=== PATIENT | female | born 1950 | race Caucasian/White ===

== ENCOUNTER 2017-03-14 15:06 | Emergency (ER) | payer MEDICARE, MEDICAID ==
[~2017-03-14] VITALS: Ht 167.6 cm; Wt 56.0 kg
[2017-03-14 18:07] LABS: BASOPHILS % 0.4 % (0.0-2.0); EOSINOPHILS % 0.8 % (0.0-5.0); HEMATOCRIT. 29.8 % (36.0-48.0); HEMOGLOBIN. 9.7 g/dL (12.0-16.0); LYMPHOCYTES % 10.9 % (20.0-50.0); MEAN CORPUSCULAR HEMOGLOBIN 27.4 pg (28.0-32.0); MEAN CORPUSCULAR HGB CONC 32.7 g/dL (31.0-37.0); MEAN CORPUSCULAR VOLUME 83.7 fL (81.0-99.0); MEAN PLATELET VOLUME 7.1 fl (7.4-10.4); MONOCYTES % 8.4 % (2.0-8.0); NEUTROPHILS % 79.5 % (40.0-76.0); PLATELET 366 x1000/uL (130-400); RED BLOOD CELL COUNT 3.56 mill/uL (4.2-5.4); RED CELL DISTRIBUTION WIDTH 16.2 % (11.6-14.6); WHITE BLOOD COUNT 11.5 x1000/uL (4.5-11.0)
[2017-03-14 18:11] LABS: CALCIUM 8.9 mg/dL (8.5-10.1)
[2017-03-14 20:53] VITALS: BP 131/52
== END 2017-03-14 21:22 | disposition home or self-care (01) ==
LOC: ER 15:07 → SUPCPDRO 20:09 → ER 21:22
DX: R00.0 Tachycardia, unspecified (principal); I12.0 Hypertensive chronic kidney disease with stage 5 chronic kidney disease or end stage renal disease; N18.6 End stage renal disease; Z99.2 Dependence on renal dialysis
CPT/HCPCS: 36415; 71010; 80048; 85025; 93005; 99285

== ENCOUNTER 2017-07-28 16:24 | Inpatient (IN) | payer MEDICARE, MEDICAID, OTHER ==
[~2017-07-28] VITALS: Ht 182.9 cm; Wt 55.8 kg
[2017-07-28] MEDS ORDERED: CLON0.2T PO (17:12)
[2017-07-28] MEDS ORDERED: CARV6.2548 PO (17:12)
[2017-07-28] MEDS ORDERED: DILT120C11 PO (17:12)
[2017-07-28] MEDS ORDERED: LISI40TA4 PO (17:12)
[2017-07-28] MEDS ORDERED: SEVE800T8 PO (17:12)
[2017-07-28] MEDS ORDERED: MINO2.5T19 GT (17:12)
[2017-07-28 17:49] LABS: BASOPHILS % 0.9 % (0.0-2.0); EOSINOPHILS % 5.2 % (0.0-5.0); HEMATOCRIT. 29.9 % (36.0-48.0); HEMOGLOBIN. 9.9 g/dL (12.0-16.0); LYMPHOCYTES % 16.9 % (20.0-50.0); MEAN CORPUSCULAR HEMOGLOBIN 26.9 pg (28.0-32.0); MEAN CORPUSCULAR VOLUME 81.1 fL (81.0-99.0); MEAN PLATELET VOLUME 7.3 fl (7.4-10.4); MONOCYTES % 9.8 % (2.0-8.0); NEUTROPHILS % 67.2 % (40.0-76.0); PLATELET 188 x1000/uL (130-400); RED BLOOD CELL COUNT 3.69 mill/uL (4.2-5.4)
[2017-07-28 18:05] LABS: PARTIAL THROMBOPLASTIN TIME 59.2 sec (23.4-31.0); PROTHROMBIN TIME 77.2 sec (9.4-11.6)
[2017-07-28 18:17] LABS: INR 7.4
[2017-07-28] MEDS ORDERED: PHYTONADIONE 10MG/ML AMP SUBCUT ONE (19:00)
[2017-07-28] MEDS ORDERED: CLONIDINE 0.2MG TABLET PO ONE (19:00)
[2017-07-28 19:19] LABS: TROPONIN I 0.02 ng/mL (0.00-0.04)
[2017-07-28] MEDS ORDERED: MAGNESIUM/ALUMINUM HYDROXIDE/SIMETHICONE 30ML UDC PO PRN (21:15)
[2017-07-28] MEDS ORDERED: ACETAMINOPHEN 325MG TABLET PO PRN (21:15)
[2017-07-28] MEDS ORDERED: IPRATROPIUM/ALBUTEROL 0.5-3(2.5)MG/3ML NEB INH PRN (21:15)
[2017-07-28] MEDS ORDERED: ONDANSETRON HCL 4MG/2ML VIAL IV PRN (21:15)
[2017-07-28 21:50] VITALS: BP 187/50
[2017-07-28 22:30] VITALS: BP 187/50
[2017-07-28] MEDS: CLONIDINE 0.1MG TABLET PO PRN (23:08)
[2017-07-28 23:48] LABS: PARTIAL THROMBOPLASTIN TIME 58.5 sec (23.4-31.0); PROTHROMBIN TIME 64.6 sec (9.4-11.6)
[2017-07-28 23:57] LABS: INR 6.2
[2017-07-29] VITALS (14 sets, daily range): BP systolic 106–191; BP diastolic 45–60
[2017-07-29] MEDS: HYDRALAZINE 20MG/ML VIAL IV PRN ×2 (01:53→17:46)
[2017-07-29] MEDS ORDERED: HYDRALAZINE 20MG/ML VIAL IV SCH (06:00)
[2017-07-29] MEDS ORDERED: AMLODIPINE 10MG TABLET PO NR (06:05)
[2017-07-29] MEDS: HYDRALAZINE HCL 25MG TABLET PO SCH ×3 (06:14→21:15)
[2017-07-29] MEDS ORDERED: DEXTROSE 50% WATER 50ML SYRINGE IV PRN (06:45)
[2017-07-29] MEDS: BLOOD SUGAR DIAGNOSTIC STRIP TEST SCH ×4 (06:54→20:12)
[2017-07-29] MEDS: INSULIN LISPRO 100 UNITS/ML SUBCUT SCH ×4 (06:54→20:13)
[2017-07-29 07:18] LABS: EOSINOPHILS % 3.9 % (0.0-5.0); HEMATOCRIT. 26.6 % (36.0-48.0); HEMOGLOBIN. 8.8 g/dL (12.0-16.0); LYMPHOCYTES % 14.5 % (20.0-50.0); MEAN CORPUSCULAR HEMOGLOBIN 26.9 pg (28.0-32.0); MEAN CORPUSCULAR VOLUME 81.1 fL (81.0-99.0); MONOCYTES % 9.7 % (2.0-8.0); NEUTROPHILS % 70.9 % (40.0-76.0); PLATELET 166 x1000/uL (130-400); RED BLOOD CELL COUNT 3.28 mill/uL (4.2-5.4)
[2017-07-29] MEDS ORDERED: PHYTONADIONE 10MG/ML AMP SUBCUT SCH (09:00)
[2017-07-29] MEDS ORDERED: WARF7.5T22 PO (10:23)
[2017-07-29] MEDS ORDERED: METO-396 PO (10:23)
[2017-07-29] MEDS ORDERED: WARF5TAB73 PO (10:23)
[2017-07-29] MEDS ORDERED: AMLO2.5T45 PO (10:23)
[2017-07-29] MEDS: AMLODIPINE 2.5MG TABLET PO SCH (10:55)
[2017-07-29] MEDS: LISINOPRIL 40MG TABLET PO SCH (10:56)
[2017-07-29] MEDS: METOPROLOL TARTRATE 25MG TABLET PO SCH (10:56)
[2017-07-29] MEDS: AZITHROMYCIN 500 MG in DEXT 5% WATER 250 ML IV SCH (20:05)
[2017-07-29] MEDS: CEFTRIAXONE 1 G PREMIX 50 ML IV SCH (21:15)
[2017-07-30 00:30] VITALS: BP 168/52
[2017-07-30] MEDS: CLONIDINE 0.1MG TABLET PO PRN (00:42)
[2017-07-30 05:01] VITALS: BP 169/59
[2017-07-30] MEDS: HYDRALAZINE HCL 25MG TABLET PO SCH ×3 (05:16→21:12)
[2017-07-30] MEDS: BLOOD SUGAR DIAGNOSTIC STRIP TEST SCH ×4 (06:15→20:37)
[2017-07-30] MEDS: INSULIN LISPRO 100 UNITS/ML SUBCUT SCH ×4 (06:15→21:04)
[2017-07-30 07:19] LABS: INR 1.2; PARTIAL THROMBOPLASTIN TIME 28.1 sec (23.4-31.0); PROTHROMBIN TIME 12.9 sec (9.4-11.6)
[2017-07-30 07:46] LABS: BASOPHILS % 0.9 % (0.0-2.0); EOSINOPHILS % 1.7 % (0.0-5.0); HEMATOCRIT. 26.6 % (36.0-48.0); HEMOGLOBIN. 8.8 g/dL (12.0-16.0); MEAN CORPUSCULAR HEMOGLOBIN 26.9 pg (28.0-32.0); MEAN CORPUSCULAR VOLUME 81.5 fL (81.0-99.0); MEAN PLATELET VOLUME 7.9 fl (7.4-10.4); MONOCYTES % 10.2 % (2.0-8.0); NEUTROPHILS % 65.2 % (40.0-76.0); PLATELET 193 x1000/uL (130-400); RED BLOOD CELL COUNT 3.27 mill/uL (4.2-5.4); RED CELL DISTRIBUTION WIDTH 18.1 % (11.6-14.6)
[2017-07-30 08:00] VITALS: BP 179/56
[2017-07-30] MEDS: LISINOPRIL 40MG TABLET PO SCH (09:00)
[2017-07-30] MEDS: AMLODIPINE 2.5MG TABLET PO SCH (09:00)
[2017-07-30] MEDS: METOPROLOL TARTRATE 25MG TABLET PO SCH (09:00)
[2017-07-30] MEDS: AMLODIPINE 5MG TABLET PO SCH (11:00)
[2017-07-30 12:00] VITALS: BP 154/59
[2017-07-30] MEDS: HYDRALAZINE 20MG/ML VIAL IV PRN ×3 (15:50→21:04)
[2017-07-30 16:00] VITALS: BP 202/63
[2017-07-30 19:57] VITALS: BP 160/52
[2017-07-30] MEDS: AZITHROMYCIN 500 MG in DEXT 5% WATER 250 ML IV SCH (20:29)
[2017-07-30] MEDS: CEFTRIAXONE 1 G PREMIX 50 ML IV SCH (21:02)
[2017-07-31] VITALS: BP 131/56
[2017-07-31 04:00] VITALS: BP 165/55
[2017-07-31 05:58] LABS: INR 1.2; PARTIAL THROMBOPLASTIN TIME 25.4 sec (23.4-31.0); PROTHROMBIN TIME 12.3 sec (9.4-11.6)
[2017-07-31] MEDS: HYDRALAZINE HCL 25MG TABLET PO SCH ×2 (06:03→14:13)
[2017-07-31 06:23] LABS: BASOPHILS % 0.8 % (0.0-2.0); EOSINOPHILS % 1.1 % (0.0-5.0); HEMATOCRIT. 27.1 % (36.0-48.0); LYMPHOCYTES % 26.2 % (20.0-50.0); MEAN CORPUSCULAR HEMOGLOBIN 27.2 pg (28.0-32.0); MEAN CORPUSCULAR VOLUME 81.9 fL (81.0-99.0); MEAN PLATELET VOLUME 7.9 fl (7.4-10.4); MONOCYTES % 14.9 % (2.0-8.0); PLATELET 162 x1000/uL (130-400); RED BLOOD CELL COUNT 3.31 mill/uL (4.2-5.4); RED CELL DISTRIBUTION WIDTH 18.3 % (11.6-14.6)
[2017-07-31] MEDS: BLOOD SUGAR DIAGNOSTIC STRIP TEST SCH ×2 (06:51→12:28)
[2017-07-31] MEDS: INSULIN LISPRO 100 UNITS/ML SUBCUT SCH ×2 (06:51→12:28)
[2017-07-31 08:00] VITALS: BP 109/58
[2017-07-31] MEDS: LISINOPRIL 40MG TABLET PO SCH (09:00)
[2017-07-31] MEDS: AMLODIPINE 5MG TABLET PO SCH (09:13)
[2017-07-31] MEDS: METOPROLOL TARTRATE 25MG TABLET PO SCH (09:13)
[2017-07-31 12:00] VITALS: BP 161/45
[2017-07-31 13:52] VITALS: BP 161/52
[2017-07-31] MEDS: CLONIDINE 0.1MG TABLET PO PRN (15:01)
[2017-07-31] MEDS ORDERED: AZITHROMYCIN 500 MG TABLET PO SCH (20:00)
== END 2017-07-31 16:00 | disposition home or self-care (01) | DRG 314 ==
LOC: ER 17:46 → 8WST 19:28 → EDBEDREQ 19:31 → ENRESERV 20:00
PROVIDERS: ADMIT Internal Medicine; ATTEND Internal Medicine
PROC: 30233L1 Transfusion of Nonautologous Fresh Plasma into Peripheral Vein, Percutaneous Approach (ICD-10-PCS; 2017-07-29)
PROC: 30233K1 Transfusion of Nonautologous Frozen Plasma into Peripheral Vein, Percutaneous Approach (ICD-10-PCS; 2017-07-29)
PROC: 5A1D00Z (ICD-10-PCS; principal; 2017-07-30)
DX: T82.838A Hemorrhage due to vascular prosthetic devices, implants and grafts, initial encounter (principal); J18.9 Pneumonia, unspecified organism; J90 Pleural effusion, not elsewhere classified; N18.6 End stage renal disease; I12.0 Hypertensive chronic kidney disease with stage 5 chronic kidney disease or end stage renal disease; D68.59 Other primary thrombophilia; J44.9 Chronic obstructive pulmonary disease, unspecified; J44.0 Chronic obstructive pulmonary disease with (acute) lower respiratory infection; E11.22 Type 2 diabetes mellitus with diabetic chronic kidney disease; E87.70 Fluid overload, unspecified; D64.9 Anemia, unspecified; E78.5 Hyperlipidemia, unspecified; I25.10 Atherosclerotic heart disease of native coronary artery without angina pectoris; I48.0 Paroxysmal atrial fibrillation; Y84.1 Kidney dialysis as the cause of abnormal reaction of the patient, or of later complication, without mention of misadventure at the time of the procedure; Z79.899 Other long term (current) drug therapy; Z99.2 Dependence on renal dialysis; Y92.89 Other specified places as the place of occurrence of the external cause
CPT/HCPCS: 36415; 71010; 80048; 80076; 82962; 83880; 84443; 84484; 85025; 85610; 85730; 86850; 86900; 86927; 87040; 93005; 93306; 93970; 96372; 99285; J0360; J0456; J0696; J1815; J3430; J7040; J7050; J7060; P9017

== ENCOUNTER 2017-10-19 05:46 | Inpatient (IN) | payer MEDICARE, OTHER ==
[~2017-10-19] VITALS: Ht 160 cm; Wt 61.2 kg
[~2017-10-19 05:46] MED LIST: AMLO2.5T45 PO; CLON0.2T PO; LISI40TA4 PO; METO-396 PO; SEVE800T8 PO; WARF5TAB73 PO; WARF7.5T22 PO
[2017-10-19 07:02] LABS: BASOPHILS % 1.1 % (0.0-2.0); EOSINOPHILS % 3.2 % (0.0-5.0); HEMATOCRIT. 33.2 % (36.0-48.0); HEMOGLOBIN. 11.1 g/dL (12.0-16.0); LYMPHOCYTES % 10.5 % (20.0-50.0); MEAN CORPUSCULAR HEMOGLOBIN 27.3 pg (28.0-32.0); MEAN CORPUSCULAR VOLUME 81.5 fL (81.0-99.0); MEAN PLATELET VOLUME 8.1 fl (7.4-10.4); MONOCYTES % 4.2 % (2.0-8.0); PLATELET 200 x1000/uL (130-400); RED BLOOD CELL COUNT 4.07 mill/uL (4.2-5.4); RED CELL DISTRIBUTION WIDTH 16.6 % (11.6-14.6)
[2017-10-19 07:10] LABS: INR 2.1; PARTIAL THROMBOPLASTIN TIME 31.3 sec (23.4-31.0); PROTHROMBIN TIME 21.9 sec (9.4-11.6)
[2017-10-19 07:27] LABS: CARBON DIOXIDE 29 mEq/L (21-32); CHLORIDE 93 mEq/L (98-107); TROPONIN I 0.02 ng/mL (0.00-0.04)
[2017-10-19] MEDS ORDERED: NITROGLYCERIN OINT 1GM/INCH UDPKT TD ONE (10:30)
[2017-10-19] MEDS ORDERED: DOCUSATE SODIUM 100MG CAPSULE PO PRN (11:15)
[2017-10-19] MEDS ORDERED: IPRATROPIUM/ALBUTEROL 0.5-3(2.5)MG/3ML NEB INH PRN (11:15)
[2017-10-19] MEDS ORDERED: ONDANSETRON HCL 4MG/2ML VIAL IV PRN (11:15)
[2017-10-19] MEDS ORDERED: ENOXAPARIN 40MG/0.4ML SYR SUBCUT SCH (11:15)
[2017-10-19] MEDS ORDERED: CLONIDINE 0.1MG TABLET PO PRN (11:15)
[2017-10-19] MEDS ORDERED: ACETAMINOPHEN 325MG TABLET PO PRN (11:15)
[2017-10-19] MEDS ORDERED: DIPHENHYDRAMINE 50MG/ML VIAL IV PRN (11:15)
[2017-10-19] MEDS: NIFEDIPINE XL 60MG TAB PO SCH (11:15)
[2017-10-19 11:16] VITALS: BP 200/70
[2017-10-19 12:00] VITALS: BP 191/63
[2017-10-19] MEDS ORDERED: IPRATROPIUM/ALBUTEROL 0.5-3(2.5)MG/3ML NEB HHN SCH (12:00)
[2017-10-19] MEDS: LISINOPRIL 40MG TABLET PO SCH (12:15)
[2017-10-19] MEDS: CLONIDINE 0.2MG TABLET PO SCH ×2 (13:34→21:23)
[2017-10-19] MEDS ORDERED: DEXTROSE 50% WATER 50ML SYRINGE IV PRN (13:45)
[2017-10-19] MEDS ORDERED: ALBUTEROL (0.083%) 2.5MG/3ML NEB HHN PRN (15:30)
[2017-10-19] MEDS: IPRATROPIUM/ALBUTEROL 0.5-3(2.5)MG/3ML NEB HHN SCH ×2 (16:12→20:42)
[2017-10-19] MEDS: BLOOD SUGAR DIAGNOSTIC STRIP TEST SCH ×2 (16:15→20:07)
[2017-10-19] MEDS: INSULIN LISPRO 100 UNITS/ML SUBCUT SCH ×2 (16:41→20:10)
[2017-10-19 17:15] LABS: CREATINE KINASE 44 IU/L (26-192); CREATINE KINASE MB FRACTION 2.2 ng/mL (0.5-3.6); TROPONIN I < 0.02 ng/mL (0.00-0.04)
[2017-10-19 17:30] VITALS: BP 166/60
[2017-10-19 20:00] VITALS: BP 197/63
[2017-10-19] MEDS: ATORVASTATIN CALCIUM 20MG TABLET PO SCH (20:07)
[2017-10-19] MEDS: METOPROLOL TARTRATE 50MG TABLET PO SCH (20:07)
[2017-10-20] VITALS (7 sets, daily range): BP systolic 165–194; BP diastolic 45–76
[2017-10-20 01:36] LABS: CREATINE KINASE MB FRACTION 1.2 ng/mL (0.5-3.6); TROPONIN I 0.03 ng/mL (0.00-0.04)
[2017-10-20] MEDS: CLONIDINE 0.2MG TABLET PO SCH ×3 (05:18→20:11)
[2017-10-20] MEDS: INSULIN LISPRO 100 UNITS/ML SUBCUT SCH ×4 (06:26→21:00)
[2017-10-20] MEDS: BLOOD SUGAR DIAGNOSTIC STRIP TEST SCH ×4 (06:26→20:13)
[2017-10-20] MEDS ORDERED: SODIUM CHLORIDE 0.9% 10ML VIAL ONE (06:48)
[2017-10-20 07:27] LABS: BASOPHILS % 1.1 % (0.0-2.0); EOSINOPHILS % 3.8 % (0.0-5.0); HEMOGLOBIN. 9.5 g/dL (12.0-16.0); LYMPHOCYTES % 20.4 % (20.0-50.0); MEAN PLATELET VOLUME 8.3 fl (7.4-10.4); MONOCYTES % 9.8 % (2.0-8.0); NEUTROPHILS % 64.9 % (40.0-76.0); PLATELET 166 x1000/uL (130-400); RED BLOOD CELL COUNT 3.53 mill/uL (4.2-5.4); RED CELL DISTRIBUTION WIDTH 16.6 % (11.6-14.6)
[2017-10-20] MEDS: IPRATROPIUM/ALBUTEROL 0.5-3(2.5)MG/3ML NEB HHN SCH ×4 (08:49→20:49)
[2017-10-20] MEDS: METOPROLOL TARTRATE 50MG TABLET PO SCH ×2 (09:00→23:04)
[2017-10-20] MEDS: LISINOPRIL 40MG TABLET PO SCH (09:00)
[2017-10-20] MEDS: NIFEDIPINE XL 60MG TAB PO SCH (09:00)
[2017-10-20] MEDS: PANTOPRAZOLE SODIUM 40 MG/VIAL IV SCH (09:00)
[2017-10-20 10:00] LABS: BG BASE EXCESS 4.1 mmol/L (-2.0-2.0); BG CARBOXYHEMOGLOBIN 0.3 % (0.5-1.5); BG DEOXYHEMOGLOBIN 4.7 % (0.0-5.0); BG FRACTION INSPIRED OXYGEN 36; BG HCO3 ACT 28.2 mmol/L (22.0-26.0); BG METHEMOGLOBIN 0.3 % (0.0-1.5); BG OXYGEN SATURATION 95.3 % (92.0-98.5); BG OXYHEMOGLOBIN 94.7 % (94.0-97.0); BG PCO2 40.5 mmHg (35.0-45.0); BG PH 7.461 (7.350-7.450); BG PO2 78.1 mmHg (75.0-100.0); BG SAMPLE SITE RIGHT BRACHIAL; BG TOTAL HEMOGLOBIN 10.3 g/dL (12.0-18.0); BG VENT MODE NASAL CANNULA
[2017-10-20] MEDS ORDERED: CLONIDINE 0.1MG TABLET PO PRN (12:45)
[2017-10-20] MEDS ORDERED: HYDRALAZINE 20MG/ML VIAL IV PRN (12:45)
[2017-10-20] MEDS: HYDRALAZINE HCL 50MG TABLET PO SCH ×2 (14:00→23:04)
[2017-10-20] MEDS: ATORVASTATIN CALCIUM 20MG TABLET PO SCH (23:02)
[2017-10-21] VITALS: BP 155/50
[2017-10-21 04:00] VITALS: BP 103/55
[2017-10-21] MEDS: BLOOD SUGAR DIAGNOSTIC STRIP TEST SCH ×2 (05:40→11:28)
[2017-10-21] MEDS: INSULIN LISPRO 100 UNITS/ML SUBCUT SCH ×2 (06:15→12:17)
[2017-10-21] MEDS: HYDRALAZINE HCL 50MG TABLET PO SCH ×2 (06:16→13:02)
[2017-10-21] MEDS: CLONIDINE 0.2MG TABLET PO SCH ×2 (06:17→13:02)
[2017-10-21 07:35] LABS: EOSINOPHILS % 2.3 % (0.0-5.0); HEMATOCRIT. 30.4 % (36.0-48.0); HEMOGLOBIN. 10.1 g/dL (12.0-16.0); LYMPHOCYTES % 14.8 % (20.0-50.0); MEAN CORPUSCULAR HEMOGLOBIN 27.3 pg (28.0-32.0); MEAN CORPUSCULAR VOLUME 82.1 fL (81.0-99.0); MEAN PLATELET VOLUME 8.3 fl (7.4-10.4); MONOCYTES % 9.5 % (2.0-8.0); NEUTROPHILS % 72.4 % (40.0-76.0); PLATELET 159 x1000/uL (130-400); RED BLOOD CELL COUNT 3.71 mill/uL (4.2-5.4); RED CELL DISTRIBUTION WIDTH 16.4 % (11.6-14.6)
[2017-10-21 08:00] VITALS: BP 160/48
[2017-10-21] MEDS: METOPROLOL TARTRATE 50MG TABLET PO SCH (08:35)
[2017-10-21] MEDS: NIFEDIPINE XL 60MG TAB PO SCH (08:35)
[2017-10-21] MEDS: LISINOPRIL 40MG TABLET PO SCH (08:36)
[2017-10-21] MEDS: PANTOPRAZOLE SODIUM 40 MG/VIAL IV SCH (08:36)
[2017-10-21] MEDS: IPRATROPIUM/ALBUTEROL 0.5-3(2.5)MG/3ML NEB HHN SCH ×2 (10:45→13:51)
[2017-10-21 12:00] VITALS: BP 174/59
[2017-10-21] MEDS ORDERED: HYDR-4135 PO (13:01)
[2017-10-21] MEDS ORDERED: METO1TAB26 PO (13:03)
[2017-10-21] MEDS ORDERED: ATOR20TA PO (13:03)
[2017-10-21] MEDS ORDERED: PROT40 PO (13:04)
[2017-10-21] MEDS ORDERED: NIFE90TA2 PO (13:09)
[2017-10-21] MEDS ORDERED: NIFE10CA PO (13:09)
[2017-10-21 13:14] VITALS: BP 174/59
[2017-10-22] MEDS ORDERED: FAMOTIDINE 20MG TABLET PO SCH (09:00)
== END 2017-10-21 15:40 | disposition home or self-care (01) | DRG 291 ==
LOC: ER 05:46 → 8WST 09:50 → ENRESERV 10:06
PROVIDERS: ADMIT Internal Medicine Nephrology; ATTEND Internal Medicine Nephrology
PROC: 5A1D70Z Performance of Urinary Filtration, Intermittent, Less than 6 Hours Per Day (ICD-10-PCS; principal; 2017-10-19)
PROC: 5A1D70Z Performance of Urinary Filtration, Intermittent, Less than 6 Hours Per Day (ICD-10-PCS; 2017-10-20)
DX: I13.2 Hypertensive heart and chronic kidney disease with heart failure and with stage 5 chronic kidney disease, or end stage renal disease (principal); J96.00 Acute respiratory failure, unspecified whether with hypoxia or hypercapnia; E43 Unspecified severe protein-calorie malnutrition; I27.20 Pulmonary hypertension, unspecified; E11.22 Type 2 diabetes mellitus with diabetic chronic kidney disease; N18.6 End stage renal disease; I50.43 Acute on chronic combined systolic (congestive) and diastolic (congestive) heart failure; E78.5 Hyperlipidemia, unspecified; D63.8 Anemia in other chronic diseases classified elsewhere; Z99.2 Dependence on renal dialysis; Z79.01 Long term (current) use of anticoagulants; Z79.899 Other long term (current) drug therapy; Z68.23 Body mass index [BMI] 23.0-23.9, adult
CPT/HCPCS: 36415; 36600; 71010; 78582; 80048; 80053; 82375; 82550; 82553; 82805; 82962; 83735; 83880; 84100; 84443; 84484; 85025; 85610; 85730; 93005; 93306; 93970; 94640; 94664; 99291; A4216; A9558; C9113; J1815; J7030; J7620

== ENCOUNTER 2018-11-06 11:21 | Inpatient (IN) | payer MEDICARE, MEDICAID ==
[~2018-11-06] VITALS: Ht 170.2 cm; Wt 60.1 kg
[~2018-11-06 11:21] MED LIST changes: +ATOR20TA PO; +HYDR-4135 PO; -METO-396 PO; +METO1TAB26 PO; +NIFE90TA2 PO; +PROT40 PO; -WARF5TAB73 PO
[2018-11-06] MEDS ORDERED: ONDANSETRON HCL 4MG/2ML INJ IV STA (11:51)
[2018-11-06] MEDS ORDERED: DILTIAZEM HCL 5MG/ML 5ML VIAL IV ONE ×3 (11:53→17:30)
[2018-11-06] MEDS ORDERED: SODIUM CHLORIDE 0.9% 1000ML BAG (SEPSIS BOLUS) IV ONE (12:00)
[2018-11-06 12:32] LABS: HEMATOCRIT. 52.6 % (36.0-48.0); HEMOGLOBIN. 17.2 g/dL (12.0-16.0); MEAN CORPUSCULAR HEMOGLOBIN 26.7 pg (28.0-32.0); MEAN CORPUSCULAR VOLUME 81.6 fL (81.0-99.0); MEAN PLATELET VOLUME 8.5 fl (7.4-10.4); PLATELET 161 x1000/uL (130-400); RED BLOOD CELL COUNT 6.44 mill/uL (4.2-5.4); RED CELL DISTRIBUTION WIDTH 20.7 % (11.6-14.6)
[2018-11-06 13:24] LABS: CHLORIDE 94 mEq/L (98-107)
[2018-11-06 13:35] LABS: NUCLEATED RED BLOOD CELLS 1 /100 WBC; PLATELET ESTIMATE NORMAL
[2018-11-06 15:01] LABS: INR 1.2; PROTHROMBIN TIME 12.3 sec (9.1-11.1)
[2018-11-06] MEDS ORDERED: ONDANSETRON HCL 4MG/2ML INJ IV PRN (17:15)
[2018-11-06] MEDS ORDERED: DOCUSATE SODIUM 100MG CAPSULE PO PRN (17:15)
[2018-11-06] MEDS ORDERED: CLONIDINE 0.1MG TABLET PO PRN (17:15)
[2018-11-06] MEDS ORDERED: ACETAMINOPHEN 325MG TABLET PO PRN (17:15)
[2018-11-06 20:35] VITALS: BP 151/78
[2018-11-06 21:00] VITALS: BP 150/75
[2018-11-06] MEDS ORDERED: ENOXAPARIN 30MG/0.3ML SYR SUBCUT SCH (21:00)
[2018-11-06 22:00] VITALS: BP 159/80
[2018-11-07] VITALS (12 sets, daily range): BP systolic 142–185; BP diastolic 59–91
[2018-11-07] MEDS ORDERED: DILTIAZEM HCL 5MG/ML 5ML VIAL IV SCH (00:30)
[2018-11-07] MEDS: DILTIAZEM HCL 125 MG in DEXT 5% WATER 100 ML IV SCH (09:02)
[2018-11-07 09:34] LABS: HEMATOCRIT. 50.8 % (36.0-48.0); MEAN CORPUSCULAR HEMOGLOBIN 26.2 pg (28.0-32.0); MEAN CORPUSCULAR VOLUME 83.3 fL (81.0-99.0); MEAN PLATELET VOLUME 8.7 fl (7.4-10.4); PLATELET 165 x1000/uL (130-400); RED BLOOD CELL COUNT 6.11 mill/uL (4.2-5.4); RED CELL DISTRIBUTION WIDTH 20.2 % (11.6-14.6)
[2018-11-07] MEDS ORDERED: DILTIAZEM HCL 5MG/ML 5ML VIAL IV NR (10:00)
[2018-11-07] MEDS: CARVEDILOL 6.25 MG TABLET PO SCH ×2 (10:07→21:37)
[2018-11-07] MEDS: ASPIRIN 81MG TABLET PO SCH (10:07)
[2018-11-07 10:23] LABS: PHOSPHORUS 4.8 mg/dL (2.5-4.9)
[2018-11-07] MEDS: ENOXAPARIN 60MG/0.6ML SYR SUBCUT SCH (11:33)
[2018-11-07] MEDS ORDERED: WARFARIN SODIUM 5MG TABLET PO SCH (18:00)
[2018-11-07] MEDS: ATORVASTATIN CALCIUM 10MG TABLET PO SCH (21:37)
[2018-11-08] VITALS (15 sets, daily range): BP systolic 135–174; BP diastolic 58–86
[2018-11-08 01:42] LABS: PLATELET ESTIMATE NORMAL
[2018-11-08 06:22] LABS: HEMATOCRIT. 47.4 % (36.0-48.0); MEAN CORPUSCULAR HEMOGLOBIN 26.2 pg (28.0-32.0); MEAN PLATELET VOLUME 9.3 fl (7.4-10.4); PLATELET 191 x1000/uL (130-400); RED BLOOD CELL COUNT 5.71 mill/uL (4.2-5.4); RED CELL DISTRIBUTION WIDTH 19.9 % (11.6-14.6)
[2018-11-08 06:25] LABS: INR 1.3; PROTHROMBIN TIME 12.6 sec (9.1-11.1)
[2018-11-08] MEDS: DILTIAZEM HCL 125 MG in DEXT 5% WATER 100 ML IV SCH (07:41)
[2018-11-08 08:29] LABS: PLATELET ESTIMATE NORMAL
[2018-11-08] MEDS: ASPIRIN 81MG TABLET PO SCH (08:51)
[2018-11-08] MEDS: ENOXAPARIN 60MG/0.6ML SYR SUBCUT SCH (08:51)
[2018-11-08] MEDS: CARVEDILOL 6.25 MG TABLET PO SCH ×2 (08:51→21:36)
[2018-11-08] MEDS: DILTIAZEM HCL 60MG TABLET PO SCH ×2 (12:11→17:37)
[2018-11-08] MEDS ORDERED: VANCOMYCIN 1 G PREMIX 200 ML IV SCH (13:00)
[2018-11-08] MEDS ORDERED: VANCOMYCIN 1250MG in DEXTROSE 5% WATER 250ML IV NR (13:00)
[2018-11-08] MEDS: PIPERACILLIN/TAZ 2.25G PREMIX 50 ML IV SCH ×2 (13:16→21:36)
[2018-11-08] MEDS ORDERED: APIXABAN 2.5 MG TABLET PO SCH (17:00)
[2018-11-08] MEDS: ATORVASTATIN CALCIUM 10MG TABLET PO SCH (21:36)
[2018-11-09] VITALS (12 sets, daily range): BP systolic 113–154; BP diastolic 52–85
[2018-11-09] MEDS: DILTIAZEM HCL 60MG TABLET PO SCH ×4 (00:39→16:45)
[2018-11-09] MEDS: PIPERACILLIN/TAZ 2.25G PREMIX 50 ML IV SCH ×3 (06:00→21:08)
[2018-11-09 07:46] LABS: HEMATOCRIT. 46.6 % (36.0-48.0); HEMOGLOBIN. 14.7 g/dL (12.0-16.0); MEAN CORPUSCULAR VOLUME 82.4 fL (81.0-99.0); MEAN PLATELET VOLUME 9.2 fl (7.4-10.4); PLATELET 202 x1000/uL (130-400); RED BLOOD CELL COUNT 5.66 mill/uL (4.2-5.4)
[2018-11-09] MEDS: CARVEDILOL 6.25 MG TABLET PO SCH ×2 (08:42→21:08)
[2018-11-09] MEDS ORDERED: VANCOMYCIN 1 G PREMIX 200 ML IV NR (15:00)
[2018-11-09] MEDS ORDERED: IOHEXOL-350 100 ML BOTTLE ONE (15:12)
[2018-11-09 17:17] LABS: PLATELET ESTIMATE NORMAL
[2018-11-09] MEDS ORDERED: ENOXAPARIN 60MG/0.6ML SYR SUBCUT NR (20:45)
[2018-11-09] MEDS: ATORVASTATIN CALCIUM 10MG TABLET PO SCH (21:07)
[2018-11-10] VITALS (12 sets, daily range): BP systolic 115–164; BP diastolic 55–115
[2018-11-10] MEDS: DILTIAZEM HCL 60MG TABLET PO SCH ×4 (00:04→17:06)
[2018-11-10] MEDS: PIPERACILLIN/TAZ 2.25G PREMIX 50 ML IV SCH ×3 (06:15→23:11)
[2018-11-10 06:48] LABS: CHLORIDE 96 mEq/L (98-107)
[2018-11-10 06:53] LABS: HEMATOCRIT. 49.2 % (36.0-48.0); HEMOGLOBIN. 15.6 g/dL (12.0-16.0); MEAN CORPUSCULAR HEMOGLOBIN 26.5 pg (28.0-32.0); MEAN CORPUSCULAR VOLUME 83.5 fL (81.0-99.0); MEAN PLATELET VOLUME 9.5 fl (7.4-10.4); PLATELET 177 x1000/uL (130-400); RED CELL DISTRIBUTION WIDTH 19.7 % (11.6-14.6)
[2018-11-10] MEDS: ASPIRIN 81MG TABLET PO SCH (09:00)
[2018-11-10] MEDS: APIXABAN 2.5 MG TABLET PO SCH ×2 (09:00→16:37)
[2018-11-10 10:12] LABS: PLATELET ESTIMATE NORMAL
[2018-11-10] MEDS: CARVEDILOL 6.25 MG TABLET PO SCH ×2 (10:31→21:00)
[2018-11-10] MEDS: BLOOD SUGAR DIAGNOSTIC STRIP TEST SCH ×4 (10:33→21:00)
[2018-11-10] MEDS ORDERED: LIDOCAINE HCL 1% 20ML VIAL (Pyxis) INJ ONE (11:02)
[2018-11-10] MEDS ORDERED: HEPARIN SODIUM 1,000 UNIT/1ML VIAL IV ONE (14:41)
[2018-11-10 14:44] LABS: BG BASE EXCESS -0.5 mmol/L (-2.0-2.0); BG CARBOXYHEMOGLOBIN 1.3 % (0.5-1.5); BG DEOXYHEMOGLOBIN 4.3 % (0.0-5.0); BG HCO3 ACT 23.8 mmol/L (22.0-26.0); BG METHEMOGLOBIN 0.3 % (0.0-1.5); BG OXYGEN SATURATION 95.6 % (92.0-98.5); BG OXYHEMOGLOBIN 94.1 % (94.0-97.0); BG PCO2 38.1 mmHg (35.0-45.0); BG PH 7.413 (7.350-7.450); BG PO2 89.4 mmHg (75.0-100.0); BG SAMPLE SITE RIGHT BRACHIAL; BG TOTAL HEMOGLOBIN 15.7 g/dL (12.0-18.0); BG VENT MODE ROOM AIR
[2018-11-10] MEDS: ATORVASTATIN CALCIUM 10MG TABLET PO SCH (21:21)
[2018-11-11] VITALS (8 sets, daily range): BP systolic 103–151; BP diastolic 37–79
[2018-11-11] MEDS: BLOOD SUGAR DIAGNOSTIC STRIP TEST SCH ×4 (04:42→12:00)
[2018-11-11] MEDS: PIPERACILLIN/TAZ 2.25G PREMIX 50 ML IV SCH (06:51)
[2018-11-11] MEDS: DILTIAZEM HCL 60MG TABLET PO SCH ×2 (06:51)
[2018-11-11 07:56] LABS: HEMATOCRIT. 57.6 % (36.0-48.0); HEMOGLOBIN. 17.9 g/dL (12.0-16.0); MEAN CORPUSCULAR HEMOGLOBIN 26.2 pg (28.0-32.0); MEAN CORPUSCULAR VOLUME 84.4 fL (81.0-99.0); RED BLOOD CELL COUNT 6.82 mill/uL (4.2-5.4)
[2018-11-11] MEDS: ASPIRIN 81MG TABLET PO SCH (09:37)
[2018-11-11] MEDS: CARVEDILOL 6.25 MG TABLET PO SCH (09:38)
[2018-11-11] MEDS: APIXABAN 2.5 MG TABLET PO SCH (09:38)
[2018-11-11 09:42] LABS: PLATELET 159 x1000/uL (130-400)
[2018-11-11 09:57] LABS: PLATELET ESTIMATE NORMAL
[2018-11-11] MEDS ORDERED: DILTIAZEM HCL 5MG/ML 5ML VIAL IV PRN (10:00)
[2018-11-11] MEDS ORDERED: SODIUM POLYSTYRENE SULFONATE 15 G/60 ML BOT PO NR (10:30)
[2018-11-11] MEDS ORDERED: ATROPINE SULFATE 1MG/10ML SYR ONE (10:43)
[2018-11-11] MEDS ORDERED: ETOMIDATE 2MG/ML 10ML VIAL IV ONE (10:43)
[2018-11-11] MEDS ORDERED: VECURONIUM BROMIDE 10 MG/VIAL IV ONE (10:43)
[2018-11-11 11:02] LABS: INR 1.5; PROTHROMBIN TIME 15.3 sec (9.1-11.1)
[2018-11-11] MEDS ORDERED: DILTIAZEM HCL 90MG TABLET PO SCH (12:00)
[2018-11-11] MEDS ORDERED: SODIUM BICARBONATE 7.5% 0.9 MEQ/ML 50ML SYR IV ONE (13:37)
[2018-11-11] MEDS ORDERED: CALCIUM CHLORIDE 1GM/10ML SYR IV ONE (13:37)
[2018-11-11] MEDS ORDERED: EPINEPHRINE 0.1MG/ML (1:10,000) 10ML SYR ONE (13:37)
[2018-11-11] MEDS ORDERED: NOREPINEPHRINE 16 MG in DEXT 5% WATER 234 ML IV PRN (14:15)
[2018-11-11] MEDS ORDERED: LIDOCAINE HCL 1% 20ML VIAL (Pyxis) INJ ONE (14:51)
[2018-11-11 15:15] LABS: BG BASE EXCESS -4.5 mmol/L (-2.0-2.0); BG CARBOXYHEMOGLOBIN 0.8 % (0.5-1.5); BG DEOXYHEMOGLOBIN 0.7 % (0.0-5.0); BG FRACTION INSPIRED OXYGEN 100; BG METHEMOGLOBIN 0.3 % (0.0-1.5); BG OXYGEN SATURATION 99.3 % (92.0-98.5); BG OXYHEMOGLOBIN 98.2 % (94.0-97.0); BG PCO2 24.4 mmHg (35.0-45.0); BG PH 7.461 (7.350-7.450); BG PO2 443.9 mmHg (75.0-100.0); BG SAMPLE SITE LEFT RADIAL; BG TIDAL VOLUME(mL) 500 mL; BG TOTAL HEMOGLOBIN 16.6 g/dL (12.0-18.0); BG VENT MODE VENT - A/C; BG VENT RATE 14 set
[2018-11-11] MEDS ORDERED: PHENYLEPHRINE 40 MG in DEXT 5% WATER 246 ML IV PRN (15:15)
[2018-11-11 15:37] LABS: HEMATOCRIT 51.8 % (36.0-48.0); HEMOGLOBIN 16.4 g/dL (12.0-16.0); MEAN CORPUSCULAR HEMOGLOBIN 26.2 pg (28.0-32.0); MEAN CORPUSCULAR VOLUME 82.7 fL (81.0-99.0); PLATELET 145 x1000/uL (130-400); RED BLOOD CELL COUNT 6.27 mill/uL (4.2-5.4)
[2018-11-11 15:56] LABS: CREATINE KINASE MB FRACTION 2.9 ng/mL (0.5-3.6)
[2018-11-11 16:31] LABS: PHOSPHORUS 8.8 mg/dL (2.5-4.9)
== END 2018-11-11 17:12 | disposition expired | DRG 871 ==
LOC: ER 13:25 → 3WST 17:46 → ENRESERV 18:49 → CVICU 11-11 14:21
PROVIDERS: ADMIT Internal Medicine Nephrology; ATTEND Internal Medicine Nephrology
PROC: 5A1935Z Respiratory Ventilation, Less than 24 Consecutive Hours (ICD-10-PCS; principal; 2018-11-11)
PROC: 0BH17EZ Insertion of Endotracheal Airway into Trachea, Via Natural or Artificial Opening (ICD-10-PCS; 2018-11-11)
PROC: 5A12012 Performance of Cardiac Output, Single, Manual (ICD-10-PCS; 2018-11-11)
PROC: 05HY33Z Insertion of Infusion Device into Upper Vein, Percutaneous Approach (ICD-10-PCS; 2018-11-11)
PROC: B54MZZA Ultrasonography of Right Upper Extremity Veins, Guidance (ICD-10-PCS; 2018-11-11)
DX: A41.9 Sepsis, unspecified organism (principal); I50.43 Acute on chronic combined systolic (congestive) and diastolic (congestive) heart failure; J18.9 Pneumonia, unspecified organism; N18.6 End stage renal disease; J96.00 Acute respiratory failure, unspecified whether with hypoxia or hypercapnia; I13.2 Hypertensive heart and chronic kidney disease with heart failure and with stage 5 chronic kidney disease, or end stage renal disease; E87.1 Hypo-osmolality and hyponatremia; D68.9 Coagulation defect, unspecified; I48.4 Atypical atrial flutter; I46.9 Cardiac arrest, cause unspecified; E11.22 Type 2 diabetes mellitus with diabetic chronic kidney disease; I48.2 Chronic atrial fibrillation; E78.5 Hyperlipidemia, unspecified; E87.5 Hyperkalemia; I50.82 Biventricular heart failure; M71.21 Synovial cyst of popliteal space [Baker], right knee; S30.1XXA Contusion of abdominal wall, initial encounter; X58.XXXA Exposure to other specified factors, initial encounter; R59.0 Localized enlarged lymph nodes; Z53.9 Procedure and treatment not carried out, unspecified reason; Z66 Do not resuscitate; Y93.89 Activity, other specified; Z99.2 Dependence on renal dialysis; Y92.89 Other specified places as the place of occurrence of the external cause; Y99.8 Other external cause status; Z79.01 Long term (current) use of anticoagulants
CPT/HCPCS: 36415; 36569; 36600; 71045; 71260; 76937; 80048; 80051; 80202; 82375; 82550; 82553; 82805; 82962; 83036; 83605; 83735; 83880; 84100; 84145; 84443; 84484; 85027; 85379; 87070; 87106; 87804; 93005; 93306; 93970; 96372; 96374; 96375; 96376; 99291; C1725; C1731; J0461; J1644; J1650; J2370; J2405; J2543; J3370; J3490; J7030; J7050; J7060; Q9967